=== PATIENT | female | born 1955 | race Caucasian/White ===

== ENCOUNTER 2016-11-14 | Emergency (ER) | END 2016-11-14 11:07 | disposition home or self-care (01) ==

== ENCOUNTER 2017-06-15 13:12 | Day surgery (SDC) | payer OTHER ==
[2017-06-15] MEDS ORDERED: LACTATED RINGERS 1,000 ML IV ONE (13:45)
[2017-06-15] MEDS ORDERED: MIDAZOLAM 2 MG/2 ML VIAL IVP ONE (15:29)
[2017-06-15] MEDS ORDERED: fentaNYL 100 MCG/2 ML VIAL IVP ONE (15:29)
[2017-06-15 17:07] VITALS: BP 148/78
== END 2017-06-15 13:13 | disposition home or self-care (01) ==
LOC: SDS 13:12
PROVIDERS: ATTEND Surgery
PROC: 0DBP8ZX Excision of Rectum, Via Natural or Artificial Opening Endoscopic, Diagnostic (ICD-10-PCS; 2017-06-15)
PROC: 0DBK8ZX Excision of Ascending Colon, Via Natural or Artificial Opening Endoscopic, Diagnostic (ICD-10-PCS; principal; 2017-06-15 14:30)
DX: K63.5 Polyp of colon (principal); K62.1 Rectal polyp; K64.8 Other hemorrhoids; J45.909 Unspecified asthma, uncomplicated; I10 Essential (primary) hypertension; F17.210 Nicotine dependence, cigarettes, uncomplicated; Z80.3 Family history of malignant neoplasm of breast; Z88.5 Allergy status to narcotic agent
CPT/HCPCS: 45380; 45385; J7120

== ENCOUNTER 2018-03-03 15:05 | Outpatient (CLI) | payer OTHER ==
--- NOTE | 2018-03-03 16:42 | Ultrasound Report ---
EXAM: INGUINAL ULTRASOUND EXAM DATE: 03/03/2018 03:15 PM. CLINICAL HISTORY: Left inguinal bulge, especially in the upright position. COMPARISON: None. TECHNIQUE: Real-time sonographic imaging of the inguinal canals and vascular structures, including co gisselle-flow, was performed by the cold roll packer sheet iron. Multiple plastic products sales representative static images were saved for revi ew. FINDINGS: Hernia: Best seen in supine position with Valsalva is a small fat-containing left inguinal hernia wit h a neck of 6 mm. No sign of herniated bowel. No other ultrasound abnormality. Soft Tissues: Normal. No fluid collections or adenopathy. Other: None. IMPRESSION: Small fat-containing left inguinal hernia. [facility] Referring Provider Line: [phone] SITE ID: [id number]
== END 2018-03-03 15:06 | disposition home or self-care (01) ==
LOC: DI 15:05
PROVIDERS: ATTEND Physician Assistant
DX: R19.09 Other intra-abdominal and pelvic swelling, mass and lump (principal); K40.90 Unilateral inguinal hernia, without obstruction or gangrene, not specified as recurrent
CPT/HCPCS: 76857

== ENCOUNTER 2018-08-13 11:07 | Outpatient (CLI) | payer OTHER ==
--- NOTE | 2018-08-14 11:09 | Mammography Report ---
Reason: SCREENING w CITLALY Procedure Date: 08/13/2018 Accession Number: [id number] / [id number] Procedure: [facility]ARIS - Screening Mammo w/Citlaly CPT Code: FULL RESULT: EXAM: Screening Mammo w/Citlaly DATE: 08/13/2018 11:50 AM CLINICAL HISTORY: 63-year-old female with history of biopsy and family history of breast cancer in the mother at age 80, an aunt at age 64 and a cousin at age 30. TECHNIQUE: Bilateral CC and MLO views were obtained. COMPARISON: 09/29/2016, 01/19/2015, 02/27/2012, 12/31/2008. FINDINGS: The breasts demonstrate heterogeneously dense fibroglandular parenchyma bilaterally. In the left lateral mid breast approximately 6 cm deep is a well-circumscribed nodule which is obscured and 2-D views but well-demonstrated tomographically. This requires additional imaging and diagnostic ultrasound. No suspicious masses, clustered microcalcifications, or regions of architectural distortion are identified. IMPRESSION: Incomplete examination RECOMMENDATION: Additional evaluation as above. BIRADS CATEGORY 0: Incomplete examination STANDARD QUALIFYING STATEMENTS: 1. This examination was not reviewed with the aid of Computer-Aided Detection (CAD). 2. A negative or benign imaging report should not delay biopsy if clinically suspicious findings are present. Consider surgical consultation if warrented. More than 5% of cancers are not identified by imaging. 3. Dense breasts may obscure an underlying neoplasm. 4. This examination was reviewed with the aid of 3D breast imaging (tomosynthesis).
== END 2018-08-13 11:08 | disposition home or self-care (01) ==
LOC: DI 11:07
PROVIDERS: ATTEND Family Medicine
DX: Z12.31 Encounter for screening mammogram for malignant neoplasm of breast (principal); Z80.3 Family history of malignant neoplasm of breast
CPT/HCPCS: 77063; 77067

== ENCOUNTER 2018-08-28 13:55 | Outpatient (CLI) | payer OTHER ==
--- NOTE | 2018-08-28 16:54 | Mammography Report ---
Reason: ABN MAMM0 - LT SP VIEWS Procedure Date: 08/28/2018 Accession Number: [id number] / [id number] Procedure: DAMARIS - Diag Special Views Dig LT CPT Code: FULL RESULT: EXAM: Diag Special Views Dig LT, Breast Unilateral Limited DATE: 08/28/2018 3:38 PM CLINICAL HISTORY: Follow-up abnormal mammogram left breast. LEFT BREAST ADDITIONAL VIEWS: TECHNIQUE: Spot compression and additional true lateral view left breast COMPARISON: Mammogram 09/13/2018, left breast ultrasound 09/29/2016 FINDINGS: The density previously described in the left upper outer quadrant 2:00 position approximately 6 to 7 cm from the nipple does not definitely persist on additional views. A small subcentimeter superficial ovoid density is seen. LEFT BREAST ULTRASOUND TECHNIQUE: Real-time scanning by the garment cutter with saved static images reviewed. FINDINGS: Left breast 2:00 position 5 cm from the nipple there is a 5 x 3 x 5 mm well-circumscribed hypoechoic, ovoid lesion which may represent a small cyst or lymph node. This is stable compared to the 09/29/2016 ultrasound. No other cystic or solid mass is identified left upper outer quadrant. IMPRESSION: Benign findings RECOMMENDATION: Follow-up unilateral left breast mammogram in 6 months. BIRADS CATEGORY 2: Benign findings STANDARD QUALIFYING STATEMENTS: 1. This examination was reviewed with the aid of Computer-Aided Detection (CAD). 2. A negative or benign imaging report should not delay biopsy if clinically suspicious findings are present. Consider surgical consultation if warrented. More than 5% of cancers are not identified by imaging. 3. Dense breasts may obscure an underlying neoplasm.
== END 2018-08-28 13:56 | disposition home or self-care (01) ==
LOC: DI 13:55
PROVIDERS: ATTEND Family Medicine
DX: R92.8 Other abnormal and inconclusive findings on diagnostic imaging of breast (principal)
CPT/HCPCS: 76642

== ENCOUNTER 2020-05-19 09:59 | Outpatient (CLI) | payer OTHER ==
[2020-05-19 12:02] LABS: % IRON SATURATION 37 % (20-50); IRON 118 ug/dL (28-170); TOTAL IRON BINDING CAPACITY 319 ug/dL (250-450); TRANSFERRIN 228 mg/dL (192-382)
== END 2020-05-19 10:00 | disposition home or self-care (01) ==
LOC: LAB 09:59
PROVIDERS: ATTEND Internal Medicine
DX: R79.89 Other specified abnormal findings of blood chemistry (principal); R89.9 Unspecified abnormal finding in specimens from other organs, systems and tissues
CPT/HCPCS: 36415; 83540; 84466